=== PATIENT | male | born 1960 | race Caucasian/White ===

== ENCOUNTER → 2017-02-11 | Outpatient (CLI) | payer BC ==
[~2017-02-11] MED LIST: FENO160T PO; FLUO0.05 TOP; LDXCR30 TOP; LOSA100T2 PO; MULT-506 PO
[2017-02-11 11:22] LABS: BASO % 0.7 %; BASO ABS # 0.03 K/uL (0-0.2); COMPLETE YES; EOS % 2.6 %; IG% 0.2 %; LYMPH % 39.3 %; LYMPH ABS # 1.69 K/uL (1.2-3.4); MEAN CELL VOLUME 87.2 fL (80-100); MEAN CORPUSCULAR HEMOGLOBIN 30.9 pg (25-34); MEAN CORPUSCULAR HGB CONC 35.4 g/dl (32-36); MEAN PLATELET VOLUME 9.4 fL (7.4-10.4); MONO % 12.1 %; NEUT % 45.1 %; PLATELET COUNT 299 K/uL (130-400); RED BLOOD COUNT 4.47 M/uL (4.7-6.1)
[2017-02-11 11:32] LABS: URINE APPEARANCE CLEAR (CLEAR); URINE BILIRUBIN NEG (NEG); URINE COLOR DK YELLOW; URINE NITRITE NEG (NEG); URINE SPECIFIC GRAVITY 1.021 (1.000-1.030); UROBILINOGEN NEG (NEG)
[2017-02-11 11:34] LABS: MANUAL MICROSCOPIC REQUIRED? NO; REVIEW REQ? NO
[2017-02-11 11:36] LABS: ALT/SGPT 27 U/L (12-78); AST/SGOT 25 U/L (15-37); BLOOD UREA NITROGEN 17 mg/dl (7-18); BUN/CREATININE RATIO 12.3 (10-20); CARBON DIOXIDE 25 mmol/L (21-32); CHLORIDE 106 mmol/L (98-107); GLUCOSE 96 mg/dl (70-99); POTASSIUM 3.6 mmol/L (3.5-5.1); SODIUM 139 mmol/L (136-145)
[2017-02-11 11:39] LABS: CHOLESTEROL 205 mg/dl (0-200); CHOLESTEROL/HDL RATIO 4.4; HDL CHOLESTEROL 47 mg/dl; LDL CHOLESTEROL CALCULATED 138 mg/dl; TRIGLYCERIDES 101 mg/dl (0-150); VERY LOW DENSITY LIPOPROT CALC 20 mg/dl
[2017-02-11 11:41] LABS: CALCIUM 9.5 mg/dl (8.5-10.1)
== END | disposition home or self-care (01) ==
LOC: C.LABBC 08:24
PROVIDERS: ATTEND Internal Medicine
DX: Z00.00 Encounter for general adult medical examination without abnormal findings (principal); I10 Essential (primary) hypertension; E78.00 Pure hypercholesterolemia, unspecified; K21.9 Gastro-esophageal reflux disease without esophagitis

== ENCOUNTER 2017-05-10 23:28 | Emergency (ER) | payer BC ==
[~2017-05-10] VITALS: Ht 180.3 cm; Wt 84.9 kg
[~2017-05-10 23:28] MED LIST changes: -LDXCR30 TOP; -MULT-506 PO
[2017-05-10 23:29] VITALS: Ht 180.3 cm; Wt 84.9 kg
[2017-05-10] MEDS ORDERED: MULT-506 PO (23:44)
[2017-05-10] MEDS ORDERED: LDXCR30 TOP (23:44)
[2017-05-10] MEDS ORDERED: DOXYCYCLINE HYCLATE 100 MG CAP PO ONE (23:45)
--- NOTE | 2017-05-10 23:48 | EMERGENCY ROOM VISIT NOTE ---
ED Visit Note First contact with patient: 23:33 CHIEF COMPLAINT: Tick bite HISTORY OF PRESENT ILLNESS: This 57 yo patient presents to the emergency department after they noticed a tick embedded right calf. The patient did try to remove it and brought it in. It had been on for unknown time. The patient's tetanus shot is up-to-date. The patient denies any rashes, fevers, chills, or lightheadedness. The patient denies joint tenderness. REVIEW OF SYSTEMS: A 6 system review of systems was completed with positives and pertinent negatives listed in the HPI. ALLERGIES: wool, reviewed MEDICATIONS: Losartan, reviewed PMH: Hypertension, hyperlipidemia, reviewed SOCIAL HISTORY: No drug use PHYSICAL EXAM: Vital Signs: Reviewed Nurse's notes, vital signs stable. GENERAL : Pleasant male, in no acute distress, well-developed, well-nourished. SKIN: There is no tick embedded in the patient's right calf as he already removed and brought in for my review. There is a small zone of inflammation and eccymosis around the spot where the tick is. The skin is otherwise clear. NEUROLOGICAL: Alert and oriented to person place and time, cooperative. Sensory and motor functions grossly intact. ED COURSE: I examined the patient. The patient was counseled on tick bite and Lyme Disease and All Questions Are Answered. The patient was given doxycycline 200 mg p.o. for prophylaxis. The patient was discharged home in good condition. DIAGNOSIS: Tick bite and removal DISCHARGE INSTRUCTIONS & TREATMENT: Watch the area for signs of infection. Keep bacitracin on it for 2 days. Follow up with family doctor if he develops symptoms of a target rash, fever, chills, lightheadedness, or joint pain. Current/Historical Medications Scheduled Fenofibrate (Tricor), 160 MG PO DAILY Losartan Potassium & Hydrochlo (Hyzaar), 1 TAB PO DAILY Scheduled PRN Fluocinonide 0.05% (Lidex 0.05%), 0.05 TOP for Affected Skin Folds Allergies Coded Allergies: Latex1 -Allergic Contact Dermititis (Verified Allergy, Intermediate, RASH , 05/10/17) Uncoded Allergies: WOOL (Allergy, Mild, SENSATIVE TO SKIN-IRRITATION A CHILD, 05/10/17) Vital Signs Date Time Temp Pulse Resp B/P (MAP) Pulse Ox O2 Delivery O2 Flow Rate FiO2 05/10/17 23:29 36.7 85 20 137/91 97 Room Air Departure Information Referrals Norman Townsend M.D. (PCP) Patient Instructions [facility]
[2017-05-10 23:50] VITALS: BP 137/91; PULSE 85; TEMP 36.7; O2SAT 97
== END 2017-05-10 23:50 | disposition home or self-care (01) ==
LOC: C.EDB 23:28 → C.EDC 23:50
DX: S80.861A Insect bite (nonvenomous), right lower leg, initial encounter (principal); X58.XXXA Exposure to other specified factors, initial encounter; I10 Essential (primary) hypertension; E78.5 Hyperlipidemia, unspecified; Z79.899 Other long term (current) drug therapy; Z91.09 Other allergy status, other than to drugs and biological substances; Z91.040 Latex allergy status

== ENCOUNTER → 2017-08-19 | Outpatient (CLI) | payer BC ==
[~2017-08-19] MED LIST changes: -FLUO0.05 TOP; +LDXCR30 TOP; +MULT-506 PO
[2017-08-19 10:51] LABS: BASO % 0.6 %; BASO ABS # 0.03 K/uL (0-0.2); COMPLETE YES; EOS % 3.4 %; HEMATOCRIT 38.1 % (42-52); LYMPH % 38.9 %; LYMPH ABS # 1.92 K/uL (1.2-3.4); MEAN CELL VOLUME 87.2 fL (80-100); MEAN CORPUSCULAR HEMOGLOBIN 31.1 pg (25-34); MEAN CORPUSCULAR HGB CONC 35.7 g/dl (32-36); MEAN PLATELET VOLUME 9.1 fL (7.4-10.4); MONO % 12.4 %; NEUT % 44.7 %; PLATELET COUNT 316 K/uL (130-400); RED BLOOD COUNT 4.37 M/uL (4.7-6.1); WHITE BLOOD COUNT 4.93 K/uL (4.8-10.8)
[2017-08-19 11:18] LABS: ALT/SGPT 35 U/L (12-78); AST/SGOT 34 U/L (15-37); BLOOD UREA NITROGEN 16 mg/dl (7-18); BUN/CREATININE RATIO 12.4 (10-20); CALCIUM 9.4 mg/dl (8.5-10.1); CARBON DIOXIDE 28 mmol/L (21-32); CHLORIDE 102 mmol/L (98-107); CREATININE 1.32 mg/dl (0.60-1.40); GLUCOSE 91 mg/dl (70-99); POTASSIUM 3.3 mmol/L (3.5-5.1); SODIUM 135 mmol/L (136-145)
[2017-08-19 11:19] LABS: ESTIMATED AVERAGE GLUCOSE 114 mg/dl; HA1C FLAG Normal (Normal)
[2017-08-19 11:29] LABS: CHOLESTEROL 216 mg/dl (0-200); CHOLESTEROL/HDL RATIO 3.8; HDL CHOLESTEROL 57 mg/dl; LDL CHOLESTEROL CALCULATED 138 mg/dl; PROSTATE SPECIFIC ANTIGEN 0.723 ng/ml (0.000-4.000); TRIGLYCERIDES 104 mg/dl (0-150); VERY LOW DENSITY LIPOPROT CALC 21 mg/dl
--- NOTE | 2017-08-24 11:44 | CODING QUERY MEDICAL NECESSITY ---
SUPPORTING DIAGNOSIS NEEDED A supporting diagnosis is required for the test/procedure performed on this patient in order for us to be reimbursed by the patient's insurance. Please provide a supporting diagnosis for the following test/procedure listed below next to the test name along with your signature. *If there is no additional diagnosis for this patient that would support the following test/procedure please document that below next to the test/procedure. Test(s)/Procedure(s) that require a supporting diagnosis: * HEMOGLOBIN A1C DIAGNOSIS: * PSA DIAGNOSIS: Provider Signature: Date: Thank you Sania Goel [employer] Once completed, please kindly fax back to [phone] For questions please call [phone]
== END | disposition home or self-care (01) ==
LOC: C.LABBC 08:49
PROVIDERS: ATTEND Internal Medicine
DX: E78.00 Pure hypercholesterolemia, unspecified (principal); R73.9 Hyperglycemia, unspecified; N41.9 Inflammatory disease of prostate, unspecified

== ENCOUNTER → 2017-09-15 | Outpatient (CLI) | payer BC | END | disposition home or self-care (01) | LOC: C.RDSM 19:27 | PROVIDERS: ATTEND Physical Medicine & Rehabilitation Sports Medicine | DX: S92.415A Nondisplaced fracture of proximal phalanx of left great toe, initial encounter for closed fracture (principal); X58.XXXA Exposure to other specified factors, initial encounter ==

== ENCOUNTER → 2017-09-22 | Outpatient (CLI) | payer BC | END | disposition home or self-care (01) | LOC: C.RDSM 19:08 | PROVIDERS: ATTEND Physical Medicine & Rehabilitation Sports Medicine | DX: S92.415A Nondisplaced fracture of proximal phalanx of left great toe, initial encounter for closed fracture (principal); X58.XXXA Exposure to other specified factors, initial encounter ==

== ENCOUNTER → 2017-10-18 | Outpatient (CLI) | payer BC | END | disposition home or self-care (01) | LOC: C.RDSM 07:00 | PROVIDERS: ATTEND Physical Medicine & Rehabilitation Sports Medicine | DX: S92.415D Nondisplaced fracture of proximal phalanx of left great toe, subsequent encounter for fracture with routine healing (principal); X58.XXXD Exposure to other specified factors, subsequent encounter ==

== ENCOUNTER → 2017-11-29 | Outpatient (CLI) | payer BC | END | disposition home or self-care (01) | LOC: C.RDSM 15:19 | PROVIDERS: ATTEND Physical Medicine & Rehabilitation Sports Medicine | DX: S92.415D Nondisplaced fracture of proximal phalanx of left great toe, subsequent encounter for fracture with routine healing (principal); X58.XXXD Exposure to other specified factors, subsequent encounter ==

== ENCOUNTER 2022-05-25 20:20 | Inpatient (IN) ==
[2022-05-25 22:15] LABS: Basophils # (auto) 0.04 K/uL (0-0.2); Basophils % (auto) 0.5 %; Eosinophils # (auto) 0.17 K/uL (0-0.50); Eosinophils % (auto) 2.1 %; Hematocrit (blood only) 41.4 % (40.1-51.0); Hemoglobin 15.6 g/dl (14.0-18.0); Immature Granulocytes # (auto) 0.02 K/uL (0.00-0.02); Immature Granulocytes % (auto) 0.2 %; Lymphocytes % (auto) 12.1 %; Mean Corpuscular Hemoglobin 30.7 pg (25.0-34.0); Mean Corpuscular Hgb Conc 37.7 g/dL (32.0-36.0); Mean Corpuscular Volume 81.5 fL (80.0-100.0); Monocytes # (auto) 1.23 K/uL (0.24-0.82); Monocytes % (auto) 14.9 %; Neutrophils # (auto) 5.78 K/uL (1.4-6.5); Neutrophils % (auto) 70.2 %; Platelet Count 278 K/uL (130-400); RDW Coefficient of Variation 12.4 % (11.5-14.5); RDW Standard Deviation 36.5 fL (36.4-46.3); Red Blood Count 5.08 M/uL (4.63-6.08); White Blood Count 8.24 K/ul (4.8-10.8)
[2022-05-25 22:34] LABS: Appearance Urine Clear (Clear); Bilirubin Urine Negative (Negative); Blood Urine Negative (Negative); Color Urine Yellow; Glucose Urine UA Negative (Negative); Ketones Urine Negative (Negative); Leukocyte Esterase Urine Negative (Negative); Nitrite Urine Negative (Negative); Protein Urine Negative (Negative); Specific Gravity Urine 1.016 (1.000-1.030); Urobilinogen Urine Negative (Negative)
[2022-05-25 22:55] LABS: Albumin Globulin Ratio 1.9 (0.9-2); Albumin Level 4.8 gm/dl (3.4-5.0); Calcium 9.2 mg/dl (8.5-10.1); Creatinine Clr Calc Pharmacy 81.6 ml/min; Est GFR (African American) 93.1 ml/min; Est GFR (Non-African American) 80.3 ml/min; Globulin 2.5 gm/dl (2.5-4.0); Potassium 3.4 mmol/L (3.5-5.1); Total Protein 7.3 gm/dl (6.0-8.3)
[2022-05-25] MEDS ORDERED: ACETAMINOPHEN 1,000 MG/100 ML VIAL IV STA (23:39)
--- NOTE | 2022-05-25 23:39 | Emergency Department Note ---
History of Present Illness General Chief complaint: Headache Stated complaint: HEADACHE, VOMITING Time Seen by Provider: 05/25/22 23:22 Source: patient Mode of arrival: ambulatory Limitations: no limitations History of Present Illness Provider complaint: headache Onset (ago): day(s) 4 Location: head Maximum Pain Intensity: 5 This is a 62-year-old male who presents due to concern for persistent mild headaches and dizziness since last evening. Patient states he does have a history of migraines as well as cluster headaches, and states these been going on for many years. He has previously had headaches that have lasted several days on end. He states this episode began evening, dull and mild, and was better with Excedrin. He states it did persist over the weekend and seem to be moving around to different areas of his head. Patient states he has previously undergone imaging of his head including CAT scan as well as MRI. He states Wednesday evening he did have a few brief episodes of nausea and vomiting however felt better the rest of the weekend and had no recurrence. Patient states he recently had cellulitis on one of his left toes. He states he took a week of Keflex and did not feel it was improved so on he saw his family doctor again and was started on Bactrim. 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 He states he did take a home COVID test as a precaution and it was negative. Home Medications Medication Instructions Recorded Confirmed Type ascorbic acid (vitamin C) 1,000 mg 1 gm PO DAILY 11/25/18 05/21/22 History tablet ktdomsfg-[id number] acid 300 1 tab PO DAILY 11/25/18 05/21/22 History mcg-lycopene 600 mcg-lutein 300 mcg tablet (Centrum Silver Ultra Men's) fluocinonide 0.05 % topical cream 1 appln topical BID PRN rash 07/11/19 05/21/22 History garlic 1,000 mg capsule 1,000 mg PO BID 07/11/19 05/21/22 History cholecalciferol (vitamin D3) 25 25 mcg PO DAILY 01/14/21 05/21/22 History mcg (1,000 unit) capsule flaxseed oil 1,000 mg capsule 1,400 mg PO BIDM 02/20/21 05/21/22 History ([place]-3 Flaxseed Oil) rosuvastatin 10 mg tablet 10 mg PO DAILY #90 tabs 09/12/21 05/21/22 Rx vdmbcjl-[id number]-[id number] 250 1 tab PO Q6H PRN 03/13/22 05/21/22 History mg-250 mg-65 mg tablet (Excedrin Extra Strength) omeprazole magnesium 20 mg 10 mg PO DAILY 03/13/22 05/21/22 History tablet,delayed release (Prilosec OTC) tumeric 100 mg-jeffrey 150 mg-olive cap PO 03/13/22 05/21/22 History 50 mg-oreg 150 mg-caprylate capsule zinc 50 mg tablet 50 mg PO DAILY 03/13/22 05/21/22 History losartan 100 mg tablet 100 mg PO DAILY #30 tabs 05/26/22 Rx Allergies Allergy/AdvReac Type Severity Reaction Status Date / Time latex Allergy Intermediate RASH Verified 05/13/22 14:41 wool Allergy Mild Unknown Verified 05/26/22 02:12 Past Med/Surg History Medical History Dyslipidemia GERD (gastroesophageal reflux disease) HTN (hypertension), benign 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 Prediabetes Vertigo Surgical History S/P bunionectomy Family History Father Hypertension Denies family history of Ovarian cancer Prostate cancer Kidney disease Breast cancer Colorectal cancer Social History Smoking Status: Never smoker Second Hand Exposure: No; Hx Alcohol Use: No Hx Substance Use: No Preferred Language: Pashto Communication Ability: Effective Visual Impairment: No Limitations Hearing Ability: Normal [employer] Required: No Beliefs That Will Affect Care: None marital status: Single Current Living Situation: Alone current occupational status: employed 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 [employer] Feels Safe at Home: No Dental Care, Regularly: Yes Seatbelt Use: always Sunscreen Use: No Assistive Devices: None Review of Systems A total of 10 systems reviewed and were otherwise negative All systems reviewed & are unremarkable except as noted in HPI & below Physical Exam Vital Signs Vital Signs - 24 hr 05/25/22 20:31 05/25/22 22:17 05/26/22 00:08 Temperature 36.4 C L Temperature Source Temporal Artery Scan Pulse Rate 110 H Pulse Rate [Apical] 95 H 83 Respiratory Rate 20 17 19 Respiratory Effort / Characteristics Non-Labored Spontaneous Non-Labored Spontaneous Respiratory Depth Normal Normal Normal Respiratory Pattern Regular Regular Blood Pressure 140/87 Blood Pressure [Right Arm] 131/96 119/84 Blood Pressure Mean 104 Blood Pressure Mean [Right Arm] 107 95 Pulse Oximetry 95 97 98 Oxygen Delivery Method Room Air Room Air Sepsis Recent Fever Within 48 Hours No Sepsis New/Unexplained Change in Mental Status N/A Sepsis Action Taken by Nursing No Action Required GENERAL: alert, well appearing, well nourished, no distress, non-toxic EYE EXAM: normal conjunctiva, PERRL and EOM's grossly intact, no nystagmus OROPHARYNX: no exudate, no erythema, lips, buccal mucosa, and tongue normal and mucous membranes are moist NECK: supple, no nuchal rigidity, no adenopathy, non-tender LUNGS: Clear to auscultation. Normal chest wall mechanics, no w/r/r HEART: no murmurs, S1 normal and S2 normal ABDOMEN: abdomen soft, non-tender, normo-active bowel sounds, no masses, no rebound or guarding. BACK: Back is symmetrical on inspection and there is no deformity, no midline tenderness, no CVA tenderness. SKIN: no rashes and no bruising UPPER EXTREMITIES: upper extremities are grossly normal. FROM, nml pulses b/l. LOWER EXTREMITIES: No pitting edema. FROM, nml pulses b/l. No evidence of persistent cellulitis or worsening infection of the involved toe on the left foot. No bony tenderness with palpation, no evidence of edema or ascending lymphangitis. NEURO EXAM: Normal sensorium, cranial nerves II-XII grossly intact, normal speech, no gross weakness of arms, no gross weakness of legs. Gross sensation intact. Course Administered Medications Discontinued Medications Famotidine (Famotidine 40 Mg Tablet) 40 mg PO QAM KINA Stop: 06/25/22 08:59 Last Admin: 05/26/22 09:24 Dose: 40 mg Documented By: RANDY Sodium Chloride (Nss 1000ml) 1,000 mls @ 100 mls/hr IV .Q10H KIAN Stop: 06/24/22 23:44 Last Infusion: 05/26/22 02:15 Dose: 0 mls/hr Documented By: Admin: 05/25/22 23:49 Dose: 100 mls/hr Documented By: AMINATA Acetaminophen (Ofirmev) 1,000 mg in 100 mls @ 400 mls/hr IV NOW STA Stop: 05/25/22 23:53 Last Infusion: 05/26/22 03:53 Dose: 0 mls/hr Documented By: Admin: 05/25/22 23:47 Dose: 400 mls/hr Documented By: AMINATA Magnesium Sulfate/Dextrose (Magnesium Sulfate / D5w) 1 gm in 100 mls @ 100 mls/hr IV Q1H KINA Stop: 05/26/22 03:22 Last Infusion: 05/26/22 05:30 Dose: 0 mls/hr Documented By: Admin: 05/26/22 04:20 Dose: 100 mls/hr Documented By: Infusion: 05/26/22 04:12 Dose: 100 mls/hr Documented By: Admin: 05/26/22 03:12 Dose: 100 mls/hr Documented By: PILAR Influenza Virus Vaccine Quadrival (Fluarix Quadrivalent 0.5 Ml Syr) 0.5 ml IM .ONCE ONE Stop: 05/26/22 04:26 Last Admin: 05/26/22 09:21 Dose: 0.5 ml Documented By: RANDY Losartan Potassium (Losartan Potassium 50 Mg Tab) 100 mg PO QAM KINA Stop: 06/25/22 08:59 Last Admin: 05/26/22 09:24 Dose: 100 mg Documented By: RANDY Potassium Chloride (Potassium Chloride Crtab 20 Meq Tabcr) 20 meq PO NOW STA Stop: 05/26/22 02:06 Last Admin: 05/26/22 03:29 Dose: 20 meq Documented By: PILAR Rosuvastatin Calcium (Rosuvastatin Calcium 10 Mg Tab) 10 mg PO DAILY KINA Stop: 06/25/22 08:59 Last Admin: 05/26/22 09:24 Dose: 10 mg Documented By: RANDY Medical Decision Making Differential Diagnosis Differential Diagnosis includes but is not limited to headache, tension headache, cluster headache, migraine, subarachnoid hemorrhage, meningitis, mass, central venous thrombus, concussion, trauma and epidural/subdural hemorrhage. Medical Records Attestation: I reviewed the patient's medical records. Home Medications Current Medication List: was personally reviewed by me Laboratory Data Attestation: I reviewed the patient's lab results. Result diagrams: 05/26/22 10:30 05/26/22 10:30 Lab Results 05/25/22 05/25/22 05/25/22 Range/Units 21:51 21:51 21:51 WBC 8.24 (4.8-10.8) K/ul RBC 5.08 (4.63-6.08) M/uL Hgb 15.6 (14.0-18.0) g/dl Hct 41.4 (40.1-51.0) % MCV 81.5 (80.0-100.0) fL MCH 30.7 (25.0-34.0) pg MCHC 37.7 H (32.0-36.0) g/dL RDW Std Deviation 36.5 (36.4-46.3) fL RDW Coeff of Luly 12.4 (11.5-14.5) % Plt Count 278 (130-400) K/uL MPV 9.0 L (9.4-12.4) fL Immature Gran % (Auto) 0.2 % Neut % (Auto) 70.2 % Lymph % (Auto) 12.1 % [place] % (Auto) 14.9 % Eos % (Auto) 2.1 % Baso % (Auto) 0.5 % Neut # (Auto) 5.78 (1.4-6.5) K/uL Lymph # (Auto) 1.00 L (1.2-3.4) K/uL [place] # (Auto) 1.23 H (0.24-0.82) K/uL Eos # (Auto) 0.17 (0-0.50) K/uL Baso # (Auto) 0.04 (0-0.2) K/uL Immature Gran # (Auto) 0.02 (0.00-0.02) K/uL Sodium 124 L (136-145) mmol/L Potassium 3.4 L (3.5-5.1) mmol/L Chloride 92 L (98-107) mmol/L Carbon Dioxide 20 L (21-32) mmol/L Anion Gap 12 H (3-11) BUN 13 (6-23) mg/dl Creatinine 1.00 (0.6-1.4) mg/dl Est Cr Clr Drug Dosing 81.6 ml/min Est GFR ( Amer) 93.1 ml/min Est GFR (Non-Af Amer) 80.3 ml/min BUN/Creatinine Ratio 13.0 (10-20) Glucose 113 H (70-99(Fasting)) mg/dl Osmolality (280-300) mOsm/kg Calcium 9.2 (8.5-10.1) mg/dl Phosphorus 3.9 (2.5-4.9) mg/dl Magnesium 1.4 L (1.7-2.4) mg/dl Total Bilirubin 1.0 (0.2-1.0) mg/dl AST 42 H (13-39) U/L ALT 42 (7-52) U/L Alkaline Phosphatase 99 (34-104) U/L Total Protein 7.3 (6.0-8.3) gm/dl Albumin 4.8 (3.4-5.0) gm/dl Globulin 2.5 (2.5-4.0) gm/dl Albumin/Globulin Ratio 1.9 (0.9-2) TSH (0.300-4.500) uIu/ml Urine Color Urine Appearance (Clear) Urine pH (4.5-7.5) Ur Specific [place] (1.000-1.030) Urine Protein (Negative) Urine Glucose (UA) (Negative) Urine Ketones (Negative) Urine Blood (Negative) Urine Nitrite (Negative) Urine Bilirubin (Negative) Urine Urobilinogen (Negative) Ur Leukocyte Esterase (Negative) Ur Random Sodium mmol/L SARS-CoV-2, RNA, NAAT (NEGATIVE) 05/25/22 05/25/22 05/25/22 Range/Units 21:51 21:51 22:11 WBC (4.8-10.8) K/ul RBC (4.63-6.08) M/uL Hgb (14.0-18.0) g/dl Hct (40.1-51.0) % MCV (80.0-100.0) fL MCH (25.0-34.0) pg MCHC (32.0-36.0) g/dL RDW Std Deviation (36.4-46.3) fL RDW Coeff of Luly (11.5-14.5) % Plt Count (130-400) K/uL MPV (9.4-12.4) fL Immature Gran % (Auto) % Neut % (Auto) % Lymph % (Auto) % [place] % (Auto) % Eos % (Auto) % Baso % (Auto) % Neut # (Auto) (1.4-6.5) K/uL Lymph # (Auto) (1.2-3.4) K/uL [place] # (Auto) (0.24-0.82) K/uL Eos # (Auto) (0-0.50) K/uL Baso # (Auto) (0-0.2) K/uL Immature Gran # (Auto) (0.00-0.02) K/uL Sodium (136-145) mmol/L Potassium (3.5-5.1) mmol/L Chloride (98-107) mmol/L Carbon Dioxide (21-32) mmol/L Anion Gap (3-11) BUN (6-23) mg/dl Creatinine (0.6-1.4) mg/dl Est Cr Clr Drug Dosing ml/min Est GFR ( Amer) ml/min Est GFR (Non-Af Amer) ml/min BUN/Creatinine Ratio (10-20) Glucose (70-99(Fasting)) mg/dl Osmolality 259 L (280-300) mOsm/kg Calcium (8.5-10.1) mg/dl Phosphorus (2.5-4.9) mg/dl Magnesium (1.7-2.4) mg/dl Total Bilirubin (0.2-1.0) mg/dl AST (13-39) U/L ALT (7-52) U/L Alkaline Phosphatase (34-104) U/L Total Protein (6.0-8.3) gm/dl Albumin (3.4-5.0) gm/dl Globulin (2.5-4.0) gm/dl Albumin/Globulin Ratio (0.9-2) TSH 2.826 (0.300-4.500) uIu/ml Urine Color Yellow Urine Appearance Clear (Clear) Urine pH 6.0 (4.5-7.5) Ur Specific [place] 1.016 (1.000-1.030) Urine Protein Negative (Negative) Urine Glucose (UA) Negative (Negative) Urine Ketones Negative (Negative) Urine Blood Negative (Negative) Urine Nitrite Negative (Negative) Urine Bilirubin Negative (Negative) Urine Urobilinogen Negative (Negative) Ur Leukocyte Esterase Negative (Negative) Ur Random Sodium mmol/L SARS-CoV-2, RNA, NAAT (NEGATIVE) 05/26/22 05/26/22 Range/Units 00:01 00:25 WBC (4.8-10.8) K/ul RBC (4.63-6.08) M/uL Hgb (14.0-18.0) g/dl Hct (40.1-51.0) % MCV (80.0-100.0) fL MCH (25.0-34.0) pg MCHC (32.0-36.0) g/dL RDW Std Deviation (36.4-46.3) fL RDW Coeff of Luly (11.5-14.5) % Plt Count (130-400) K/uL MPV (9.4-12.4) fL Immature Gran % (Auto) % Neut % (Auto) % Lymph % (Auto) % [place] % (Auto) % Eos % (Auto) % Baso % (Auto) % Neut # (Auto) (1.4-6.5) K/uL Lymph # (Auto) (1.2-3.4) K/uL [place] # (Auto) (0.24-0.82) K/uL Eos # (Auto) (0-0.50) K/uL Baso # (Auto) (0-0.2) K/uL Immature Gran # (Auto) (0.00-0.02) K/uL Sodium (136-145) mmol/L Potassium (3.5-5.1) mmol/L Chloride (98-107) mmol/L Carbon Dioxide (21-32) mmol/L Anion Gap (3-11) BUN (6-23) mg/dl Creatinine (0.6-1.4) mg/dl Est Cr Clr Drug Dosing ml/min Est GFR ( Amer) ml/min Est GFR (Non-Af Amer) ml/min BUN/Creatinine Ratio (10-20) Glucose (70-99(Fasting)) mg/dl Osmolality (280-300) mOsm/kg Calcium (8.5-10.1) mg/dl Phosphorus (2.5-4.9) mg/dl Magnesium (1.7-2.4) mg/dl Total Bilirubin (0.2-1.0) mg/dl AST (13-39) U/L ALT (7-52) U/L Alkaline Phosphatase (34-104) U/L Total Protein (6.0-8.3) gm/dl Albumin (3.4-5.0) gm/dl Globulin (2.5-4.0) gm/dl Albumin/Globulin Ratio (0.9-2) TSH (0.300-4.500) uIu/ml Urine Color Urine Appearance (Clear) Urine pH (4.5-7.5) Ur Specific [place] (1.000-1.030) Urine Protein (Negative) Urine Glucose (UA) (Negative) Urine Ketones (Negative) Urine Blood (Negative) Urine Nitrite (Negative) Urine Bilirubin (Negative) Urine Urobilinogen (Negative) Ur Leukocyte Esterase (Negative) Ur Random Sodium 38 mmol/L SARS-CoV-2, RNA, NAAT NEGATIVE (NEGATIVE) MDM Narrative An order was placed for continuous cardiac monitoring. The monitor shows a rate of _80_ with _normal sinus__ rhythm. This is a 62-year-old male who presents due to concern for persistent headache and dizziness both of which she has had previously and had prior evaluation. Patient recently on antibiotics for cellulitis of the toe as diagnosed by his outpatient provider. Patient started on Bactrim, his second course of antibiotics on when he began having headaches and dizziness again evening. Labs been drawn and sent prior to my evaluation as patient presented on day of high volume and acuity. Patient hemodynamically stable and afebrile. Patient found to have significant hyponatremia which she has not previously had. No prior history of renal or adrenal problems. No other recent medication changes. I suspect patient's hyponatremia which could be contributing to the persistent dizziness and headaches is likely an adverse reaction to his Bactrim. I do not see any evidence of worsening infection on inspection of the left foot and involved toe. Case discussed with hospitalist for additional evaluation and management. I did discuss all results with the patient at bedside, he verbalized understanding and was in agreement with plan. At this time I do not suspect other occult [employer] etiology for his headaches or dizziness as patient states they are similar to prior and he has a normal and nonfocal neuro exam. Impression & Plan Headache, Hyponatremia, Dizziness Discharge Plan Visit Data Chief Complaint: Headache Stated Complaint: HEADACHE, VOMITING ED Provider: Hyun Zeng Discharge Problem: Headache, Hyponatremia, Dizziness Patient Disposition: Admitted As Inpatient Discharge Instructions Interventions: ED Discharge Assessment Last Done: 05/26/22 01:41
[2022-05-25] MEDS ORDERED: SODIUM CHLORIDE 0.9% 1000ML 1,000 ML IV SCH (23:45)
[2022-05-26 00:01] LABS: Magnesium 1.4 mg/dl (1.7-2.4); Phosphorus 3.9 mg/dl (2.5-4.9)
--- NOTE | 2022-05-26 01:07 | History & Physical Report ---
Date of Service May 26, 2022 Assessment & Plan (1) Head ache: Plan: Patient with longstanding history of headache. Reports that this headache is slightly different than his prior. He does not feel that it is more severe. No neurological deficits. He does report some visual disturbance prior to the headache startingquestion of possible aura. Reports that his pain is improved at this point. Not requesting anything for headache at this time. Tylenol as needed Zofran as needed (2) Hyponatremia: Plan: Sodium = 124. Patient is on hydrochlorothiazide for blood pressure management. Hyponatremia no acute symptoms Check urine and serum osmolality Check urine Sodium Hold HCTZ Repeat chemistry in a.m. (3) HTN (hypertension), benign: Plan: Chronic. Hold HCTZ We will give losartan 100 mg daily Continue to monitor (4) GERD (gastroesophageal reflux disease): Plan: Chronic. Stable. Pepcid 40 mg p.o. every morning while inpatient (5) Dyslipidemia: Plan: Chronic. Stable. Continue Crestor 10 mg p.o. daily History of Present Illness Chief Complaint: Headache Primary Care Provider: Ami Hernandez MD Justin Lang Is a 62-year-old male presenting with complaint of persistent headache ongoing for the last 5 days. He reports prior history of migraine or possible cluster headaches.Most recent episode began 5 days ago. He noted some mild visual disturbance prior to the headache which he describes as "missing pieces" and what he was seeing. Patient has been on Bactrim for cellulitis of the left foot. He has had some nausea as well as feeling "woozy" but no additional complaints. Specifically denies fevers, chills, chest pain, cough, shortness of breath, nausea, vomiting, diarrhea, constipation In the ER he was found to be hyponatremic with sodium = 124, K = 3.4, magnesium = 1.4 Allergies Allergy/AdvReac Type Severity Reaction Status Date / Time latex Allergy Intermediate RASH Verified 05/13/22 14:41 wool Allergy Mild Unknown Verified 05/26/22 02:12 Home Medications Medication Instructions Recorded Confirmed Type ascorbic acid (vitamin C) 1,000 mg 1 gm PO DAILY 11/25/18 05/21/22 History tablet gobiaioe-ixe-qacfl acid 300 1 tab PO DAILY 11/25/18 05/21/22 History mcg-lycopene 600 mcg-lutein 300 mcg tablet (Centrum Silver Ultra Men's) fluocinonide 0.05 % topical cream 1 appln topical BID PRN rash 07/11/19 05/21/22 History garlic 1,000 mg capsule 1,000 mg PO BID 07/11/19 05/21/22 History cholecalciferol (vitamin D3) 25 25 mcg PO DAILY 01/14/21 05/21/22 History mcg (1,000 unit) capsule flaxseed oil 1,000 mg capsule 1,400 mg PO BIDM 02/20/21 05/21/22 History ([place]-3 Flaxseed Oil) rosuvastatin 10 mg tablet 10 mg PO DAILY #90 tabs 09/12/21 05/21/22 Rx phtabsi-uzlorvvxbjvdh-daaaidmq 250 1 tab PO Q6H PRN 03/13/22 05/21/22 History mg-250 mg-65 mg tablet (Excedrin Extra Strength) loratadine 10 mg tablet (Claritin) 10 mg PO DAILY PRN 03/13/22 05/21/22 History losartan 100 1 tab PO DAILY #90 tabs 03/13/22 05/21/22 Rx mg-hydrochlorothiazide 25 mg tablet omeprazole magnesium 20 mg 10 mg PO DAILY 03/13/22 05/21/22 History tablet,delayed release (Prilosec OTC) tumeric 100 mg-jeffrey 150 mg-olive cap PO 03/13/22 05/21/22 History 50 mg-oreg 150 mg-caprylate capsule zinc 50 mg tablet 50 mg PO DAILY 03/13/22 05/21/22 History sulfamethoxazole 800 1 tab PO BID 7 days #14 tabs 05/21/22 05/21/22 Rx mg-trimethoprim 160 mg tablet Past Med/Surg History Medical History Dyslipidemia GERD (gastroesophageal reflux disease) HTN (hypertension), benign 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 Prediabetes Vertigo Surgical History S/P bunionectomy Family History Father Hypertension Denies family history of Ovarian cancer Prostate cancer Kidney disease Breast cancer Colorectal cancer Social History Smoking Status: Never smoker Second Hand Exposure: No; Do You Dip or Chew Tobacco: No; Tobacco Cessation Education Requested by Patient: No Hx Alcohol Use: No Hx Substance Use: No Preferred Language: Maltese Communication Ability: Effective Visual Impairment: No Limitations Hearing Ability: Normal Map And Chart Mounter Required: No Beliefs That Will Affect Care: None marital status: Single Current Living Situation: Alone current occupational status: employed 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 [employer] Other Information That Helps Us Care for You: No Feels Safe at Home: Yes Dental Care, Regularly: Yes Seatbelt Use: always Sunscreen Use: No Assistive Devices: Glasses Review of Systems Review of Systems: All systems reviewed & are unremarkable except as noted in HPI & below Physical Exam Physical Exam: General: patient resting comfortably, NAD, non-toxic in appearance, AA&O x 4 Skin: warm, dry, intact, no rashes or lesions HEENT: NC/AT, PERRL, EOMI, anicteric sclera, conjunctiva without injection, external ear normal to inspection and nontender, nares patent, moist mucus membranes, dentition intact, no oropharyngeal lesions, neck supple, trachea midline, no LAD, no thyromegaly, no JVD Heart: +S1/S2, regular, no m/r/g Lungs: equal air entry bilaterally, no rales/rhonchi/wheezes Abd: +BS, soft, NT/ND, no masses/organomegaly/ascites Ext: warm, 2+ pulses in UE/LE bilaterally, no clubbing/cyanosis or edema Neuro: nonfocal, patient AA&O x 4, speech intact, no facial droop, moving all extremities on command with equal strength 5/5 Results & Data Results & Data ([facility]) Vital Signs (Past 12 Hours) Vital Signs Temp Pulse Pulse Resp BP BP Pulse Ox 05/26/22 00:08 83 19 119/84 98 05/25/22 22:17 95 H 17 131/96 97 05/25/22 20:31 36.4 C L 110 H 20 140/87 95 O2 Del Method 05/26/22 00:08 Room Air 05/25/22 22:17 05/25/22 20:31 Room Air Laboratory Results Laboratory Results WBC 8.24 K/ul (4.8-10.8) 05/25/22 21:51 RBC 5.08 M/uL (4.63-6.08) 05/25/22 21:51 Hgb 15.6 g/dl (14.0-18.0) 05/25/22 21:51 Hct 41.4 % (40.1-51.0) 05/25/22 21:51 MCV 81.5 fL (80.0-100.0) 05/25/22 21:51 MCH 30.7 pg (25.0-34.0) 05/25/22 21:51 MCHC 37.7 g/dL (32.0-36.0) H 05/25/22 21:51 RDW Std Deviation 36.5 fL (36.4-46.3) 05/25/22 21:51 RDW Coeff of Luly 12.4 % (11.5-14.5) 05/25/22 21:51 Plt Count 278 K/uL (130-400) 05/25/22 21:51 MPV 9.0 fL (9.4-12.4) L 05/25/22 21:51 Immature Gran % (Auto) 0.2 % 05/25/22 21:51 Neut % (Auto) 70.2 % 05/25/22 21:51 Lymph % (Auto) 12.1 % 05/25/22 21:51 [place] % (Auto) 14.9 % 05/25/22 21:51 Eos % (Auto) 2.1 % 05/25/22 21:51 Baso % (Auto) 0.5 % 05/25/22 21:51 Neut # (Auto) 5.78 K/uL (1.4-6.5) 05/25/22 21:51 Lymph # (Auto) 1.00 K/uL (1.2-3.4) L 05/25/22 21:51 [place] # (Auto) 1.23 K/uL (0.24-0.82) H 05/25/22 21:51 Eos # (Auto) 0.17 K/uL (0-0.50) 05/25/22 21:51 Baso # (Auto) 0.04 K/uL (0-0.2) 05/25/22 21:51 Immature Gran # (Auto) 0.02 K/uL (0.00-0.02) 05/25/22 21:51 Sodium 124 mmol/L (136-145) L 05/25/22 21:51 Potassium 3.4 mmol/L (3.5-5.1) L 05/25/22 21:51 Chloride 92 mmol/L (98-107) L 05/25/22 21:51 Carbon Dioxide 20 mmol/L (21-32) L 05/25/22 21:51 Anion Gap 12 (3-11) H 05/25/22 21:51 BUN 13 mg/dl (6-23) 05/25/22 21:51 Creatinine 1.00 mg/dl (0.6-1.4) 05/25/22 21:51 Est Cr Clr Drug Dosing 81.6 ml/min 05/25/22 21:51 Est GFR ( Amer) 93.1 ml/min 05/25/22 21:51 Est GFR (Non-Af Amer) 80.3 ml/min 05/25/22 21:51 BUN/Creatinine Ratio 13.0 (10-20) 05/25/22 21:51 Glucose 113 mg/dl (70-99(Fasting)) H 05/25/22 21:51 Osmolality 259 mOsm/kg (280-300) L 05/25/22 21:51 Calcium 9.2 mg/dl (8.5-10.1) 05/25/22 21:51 Phosphorus 3.9 mg/dl (2.5-4.9) 05/25/22 21:51 Magnesium 1.4 mg/dl (1.7-2.4) L 05/25/22 21:51 Total Bilirubin 1.0 mg/dl (0.2-1.0) 05/25/22 21:51 AST 42 U/L (13-39) H 05/25/22 21:51 ALT 42 U/L (7-52) 05/25/22 21:51 Alkaline Phosphatase 99 U/L (34-104) 05/25/22 21:51 Total Protein 7.3 gm/dl (6.0-8.3) 05/25/22 21:51 Albumin 4.8 gm/dl (3.4-5.0) 05/25/22 21:51 Globulin 2.5 gm/dl (2.5-4.0) 05/25/22 21:51 Albumin/Globulin Ratio 1.9 (0.9-2) 05/25/22 21:51 TSH 2.826 uIu/ml (0.300-4.500) 05/25/22 21:51 Urine Color Yellow 05/25/22 22:11 Urine Appearance Clear (Clear) 05/25/22 22:11 Urine pH 6.0 (4.5-7.5) 05/25/22 22:11 Ur Specific [place] 1.016 (1.000-1.030) 05/25/22 22:11 Urine Protein Negative (Negative) 05/25/22 22:11 Urine Glucose (UA) Negative (Negative) 05/25/22 22:11 Urine Ketones Negative (Negative) 05/25/22 22:11 Urine Blood Negative (Negative) 05/25/22 22:11 Urine Nitrite Negative (Negative) 05/25/22 22:11 Urine Bilirubin Negative (Negative) 05/25/22 22:11 Urine Urobilinogen Negative (Negative) 05/25/22 22:11 Ur Leukocyte Esterase Negative (Negative) 05/25/22 22:11 Ur Random Sodium 38 mmol/L 05/26/22 00:25 SARS-CoV-2, RNA, NAAT NEGATIVE (NEGATIVE) 05/26/22 00:[address] head: Per stat rad No intracranial hemorrhage, mass-effect or midline shift. There is no abnormal extra-axial fluid collection. No evidence of acute infarct. The visualized paranasal sinuses and mastoid air cells are clear. No fracture. PG Care Time/CCT Total # of Minutes Spent Total Time Spent with Patient: Total time spent is greater than 50% in coordination of care (as documented) at patient's floor/unit and/or counseling patient: Coding Level of Care Code 70381 Initial Inpt Care Lvl 2 Diagnoses Head ache R51.9 Hyponatremia E87.1 HTN (hypertension), benign I10 GERD (gastroesophageal reflux disease) K21.9 Dyslipidemia E78.5
[2022-05-26] MEDS ORDERED: POTASSIUM CHLORIDE CRTAB 20 MEQ TABCR PO STA (02:05)
[2022-05-26] MEDS ORDERED: ACETAMINOPHEN 325 MG TAB PO PRN (02:05)
[2022-05-26] MEDS ORDERED: ONDANSETRON INJ 2 MG/ML 2 ML VIAL IV PRN (02:05)
[2022-05-26] MEDS ORDERED: MAGNESIUM SULFATE / D5W 1 GM/100 ML BAG IV SCH (02:30)
[2022-05-26] MEDS: MAGNESIUM SULFATE / D5W 1 GM/100 ML BAG IV SCH ×2 (03:12→04:20)
[2022-05-26] MEDS ORDERED: FLUARIX QUADRIVALENT 0.5 ML SYR IM ONE (04:25)
--- NOTE | 2022-05-26 07:26 | CT Scan Report ---
HEAD CT NONCONTRAST CT DOSE: 691.05 mGy.cm HISTORY: headache, hyponatremia TECHNIQUE: Multiaxial CT images of the head were performed without the use of intravenous contrast. A utomated exposure control was utilized for this study. A dose lowering technique was utilized adheri ng to the principles of ALARA. Comparison: Head CT 01/28/2021. Findings: The paranasal sinuses and mastoid air cells are clear. The calvarium and skull base are int act. The ventricles and sulci are within normal limits. There is no mass, hematoma, midline shift, or acute infarct. Impression: No acute intracranial abnormality. ACT 112: Negative or not required by law. Electronically signed by: Vincent Borja M.D. 05/26/2022 7:23 AM
--- NOTE | 2022-05-26 08:19 | Hospitalist Progress Note ---
Date of Service May 26, 2022 Assessment & Plan (1) Head ache: Plan: Patient with longstanding history of headaches. Reports that this headache is slightly different than his prior. He does not feel that it is more severe. No neurological deficits. He does report some visual disturbance prior to the headache startingquestion of possible aura. Patient notes that his headache has much improved. Upon clarification of previous note his visual symptoms did not start prior to the onset of headache. His headache had already started thus this is not an aura. Reports that his pain is improved at this point. Not requesting anything for headache at this time. Tylenol as needed Zofran as needed (2) Hyponatremia: Plan: Sodium = 124. Patient is on hydrochlorothiazide for blood pressure management. Hyponatremia no acute symptoms Check urine and serum osmolality Check urine Sodium Hold HCTZ AM BMP (3) HTN (hypertension), benign: Plan: Chronic. Hold HCTZ We will give losartan 100 mg daily Continue to monitor (4) GERD (gastroesophageal reflux disease): Plan: Chronic. Stable. Pepcid 40 mg p.o. every morning while inpatient (5) Dyslipidemia: Plan: Chronic. Stable. Continue Crestor 10 mg p.o. daily Admission and Anticipated Discharge Date Admission Date: May 26, 2022 Subjective Patient notes that his headache has much improved. Upon clarification of previous note his visual symptoms did not start prior to the onset of headache. His headache had already started thus this is not an aura. Patient previously experienced nausea and vomiting 05/22, but this has resolved. He is tolerating PO. No difficulty stooling or urinating. No fevers or chills. No CP or SOB. Review of Systems Review of Systems: See HPI. Physical Exam Physical Exam: General: patient resting comfortably, NAD, non-toxic in appearance, A&O Skin: warm, dry, intact, no rashes or lesions HEENT: NC/AT, PERRL, EOMI, anicteric sclera, conjunctiva without injection, external ear normal to inspection and nontender, nares patent, MMM Heart: RRR, no m/r/g Lungs: equal air entry bilaterally, no rales/rhonchi/wheezes Ext: clinically well perfused. Neuro: nonfocal, patient AA&O x 4, speech intact, no facial droop, moving all extremities on command with equal strength Results & Data Results & Data ([facility]) Vital Signs (Past 12 Hours) Vital Signs Temp Pulse Pulse Pulse Resp BP BP 05/26/22 07:17 36.7 C 77 18 113/71 05/26/22 02:05 36.8 C 05/26/22 02:05 05/26/22 02:05 36.8 C 87 05/26/22 01:41 74 15 108/79 05/26/22 00:08 83 19 05/25/22 22:17 95 H 17 05/25/22 20:31 36.4 C L 110 H 20 140/87 BP Pulse Ox O2 Del Method 05/26/22 07:17 98 Room Air 05/26/22 02:05 05/26/22 02:05 Room Air 05/26/22 02:05 149/87 H 96 Room Air 05/26/22 01:41 96 Room Air 05/26/22 00:08 119/84 98 Room Air 05/25/22 22:17 131/96 97 05/25/22 20:31 95 Room Air Laboratory Results 05/26/22 05/26/22 05/26/22 Range/Units 10:30 10:30 06:21 WBC Pending (4.8-10.8) K/ul RBC Pending (4.63-6.08) M/uL Hgb Pending (14.0-18.0) g/dl Hct Pending (40.1-51.0) % MCV Pending (80.0-100.0) fL MCH Pending (25.0-34.0) pg MCHC Pending (32.0-36.0) g/dL RDW Std Deviation (36.4-46.3) fL RDW Coeff of Luly (11.5-14.5) % Plt Count Pending (130-400) K/uL MPV (9.4-12.4) fL Immature Gran % (Auto) % Neut % (Auto) % Lymph % (Auto) % [place] % (Auto) % Eos % (Auto) % Baso % (Auto) % Neut # (Auto) (1.4-6.5) K/uL Lymph # (Auto) (1.2-3.4) K/uL [place] # (Auto) (0.24-0.82) K/uL Eos # (Auto) (0-0.50) K/uL Baso # (Auto) (0-0.2) K/uL Immature Gran # (Auto) (0.00-0.02) K/uL Sodium 130 L (136-145) mmol/L Potassium 3.5 (3.5-5.1) mmol/L Chloride 99 (98-107) mmol/L Carbon Dioxide 25 (21-32) mmol/L Anion Gap 6 (3-11) BUN 9 (6-23) mg/dl Creatinine 0.76 (0.6-1.4) mg/dl Est Cr Clr Drug Dosing 107.3 ml/min Est GFR ( Amer) 113.3 ml/min Est GFR (Non-Af Amer) 97.8 ml/min BUN/Creatinine Ratio (10-20) Glucose (70-99(Fasting)) mg/dl Fasting Glucose 91 (70-99) mg/dl Osmolality (280-300) mOsm/kg Calcium 8.6 (8.5-10.1) mg/dl Phosphorus (2.5-4.9) mg/dl Magnesium (1.7-2.4) mg/dl Total Bilirubin (0.2-1.0) mg/dl AST (13-39) U/L ALT (7-52) U/L Alkaline Phosphatase (34-104) U/L Total Protein (6.0-8.3) gm/dl Albumin (3.4-5.0) gm/dl Globulin (2.5-4.0) gm/dl Albumin/Globulin Ratio (0.9-2) TSH (0.300-4.500) uIu/ml Urine Color Urine Appearance (Clear) Urine pH (4.5-7.5) Ur Specific [place] (1.000-1.030) Urine Protein (Negative) Urine Glucose (UA) (Negative) Urine Ketones (Negative) Urine Blood (Negative) Urine Nitrite (Negative) Urine Bilirubin (Negative) Urine Urobilinogen (Negative) Ur Leukocyte Esterase (Negative) Urine Osmolality (500-800) mOsm/kg Ur Random Sodium mmol/L Hepatitis C Ab (EIA) Pending Hep C Ab Signal/Cutoff Pending SARS-CoV-2, RNA, NAAT (NEGATIVE) 05/26/22 05/26/22 05/26/22 Range/Units 06:21 04:40 00:25 WBC (4.8-10.8) K/ul RBC (4.63-6.08) M/uL Hgb (14.0-18.0) g/dl Hct (40.1-51.0) % MCV (80.0-100.0) fL MCH (25.0-34.0) pg MCHC (32.0-36.0) g/dL RDW Std Deviation (36.4-46.3) fL RDW Coeff of Luly (11.5-14.5) % Plt Count (130-400) K/uL MPV (9.4-12.4) fL Immature Gran % (Auto) % Neut % (Auto) % Lymph % (Auto) % [place] % (Auto) % Eos % (Auto) % Baso % (Auto) % Neut # (Auto) (1.4-6.5) K/uL Lymph # (Auto) (1.2-3.4) K/uL [place] # (Auto) (0.24-0.82) K/uL Eos # (Auto) (0-0.50) K/uL Baso # (Auto) (0-0.2) K/uL Immature Gran # (Auto) (0.00-0.02) K/uL Sodium (136-145) mmol/L Potassium (3.5-5.1) mmol/L Chloride (98-107) mmol/L Carbon Dioxide (21-32) mmol/L Anion Gap (3-11) BUN (6-23) mg/dl Creatinine (0.6-1.4) mg/dl Est Cr Clr Drug Dosing ml/min Est GFR ( Amer) ml/min Est GFR (Non-Af Amer) ml/min BUN/Creatinine Ratio (10-20) Glucose (70-99(Fasting)) mg/dl Fasting Glucose (70-99) mg/dl Osmolality (280-300) mOsm/kg Calcium (8.5-10.1) mg/dl Phosphorus (2.5-4.9) mg/dl Magnesium 2.0 (1.7-2.4) mg/dl Total Bilirubin (0.2-1.0) mg/dl AST (13-39) U/L ALT (7-52) U/L Alkaline Phosphatase (34-104) U/L Total Protein (6.0-8.3) gm/dl Albumin (3.4-5.0) gm/dl Globulin (2.5-4.0) gm/dl Albumin/Globulin Ratio (0.9-2) TSH (0.300-4.500) uIu/ml Urine Color Urine Appearance (Clear) Urine pH (4.5-7.5) Ur Specific [place] (1.000-1.030) Urine Protein (Negative) Urine Glucose (UA) (Negative) Urine Ketones (Negative) Urine Blood (Negative) Urine Nitrite (Negative) Urine Bilirubin (Negative) Urine Urobilinogen (Negative) Ur Leukocyte Esterase (Negative) Urine Osmolality 257 L (500-800) mOsm/kg Ur Random Sodium 38 mmol/L Hepatitis C Ab (EIA) Hep C Ab Signal/Cutoff SARS-CoV-2, RNA, NAAT (NEGATIVE) 05/26/22 05/25/22 05/25/22 Range/Units 00:01 22:11 21:51 WBC (4.8-10.8) K/ul RBC (4.63-6.08) M/uL Hgb (14.0-18.0) g/dl Hct (40.1-51.0) % MCV (80.0-100.0) fL MCH (25.0-34.0) pg MCHC (32.0-36.0) g/dL RDW Std Deviation (36.4-46.3) fL RDW Coeff of Luly (11.5-14.5) % Plt Count (130-400) K/uL MPV (9.4-12.4) fL Immature Gran % (Auto) % Neut % (Auto) % Lymph % (Auto) % [place] % (Auto) % Eos % (Auto) % Baso % (Auto) % Neut # (Auto) (1.4-6.5) K/uL Lymph # (Auto) (1.2-3.4) K/uL [place] # (Auto) (0.24-0.82) K/uL Eos # (Auto) (0-0.50) K/uL Baso # (Auto) (0-0.2) K/uL Immature Gran # (Auto) (0.00-0.02) K/uL Sodium (136-145) mmol/L Potassium (3.5-5.1) mmol/L Chloride (98-107) mmol/L Carbon Dioxide (21-32) mmol/L Anion Gap (3-11) BUN (6-23) mg/dl Creatinine (0.6-1.4) mg/dl Est Cr Clr Drug Dosing ml/min Est GFR ( Amer) ml/min Est GFR (Non-Af Amer) ml/min BUN/Creatinine Ratio (10-20) Glucose (70-99(Fasting)) mg/dl Fasting Glucose (70-99) mg/dl Osmolality 259 L (280-300) mOsm/kg Calcium (8.5-10.1) mg/dl Phosphorus (2.5-4.9) mg/dl Magnesium (1.7-2.4) mg/dl Total Bilirubin (0.2-1.0) mg/dl AST (13-39) U/L ALT (7-52) U/L Alkaline Phosphatase (34-104) U/L Total Protein (6.0-8.3) gm/dl Albumin (3.4-5.0) gm/dl Globulin (2.5-4.0) gm/dl Albumin/Globulin Ratio (0.9-2) TSH (0.300-4.500) uIu/ml Urine Color Yellow Urine Appearance Clear (Clear) Urine pH 6.0 (4.5-7.5) Ur Specific [place] 1.016 (1.000-1.030) Urine Protein Negative (Negative) Urine Glucose (UA) Negative (Negative) Urine Ketones Negative (Negative) Urine Blood Negative (Negative) Urine Nitrite Negative (Negative) Urine Bilirubin Negative (Negative) Urine Urobilinogen Negative (Negative) Ur Leukocyte Esterase Negative (Negative) Urine Osmolality (500-800) mOsm/kg Ur Random Sodium mmol/L Hepatitis C Ab (EIA) Hep C Ab Signal/Cutoff SARS-CoV-2, RNA, NAAT NEGATIVE (NEGATIVE) 05/25/22 05/25/22 05/25/22 Range/Units 21:51 21:51 21:51 WBC (4.8-10.8) K/ul RBC (4.63-6.08) M/uL Hgb (14.0-18.0) g/dl Hct (40.1-51.0) % MCV (80.0-100.0) fL MCH (25.0-34.0) pg MCHC (32.0-36.0) g/dL RDW Std Deviation (36.4-46.3) fL RDW Coeff of Luly (11.5-14.5) % Plt Count (130-400) K/uL MPV (9.4-12.4) fL Immature Gran % (Auto) % Neut % (Auto) % Lymph % (Auto) % [place] % (Auto) % Eos % (Auto) % Baso % (Auto) % Neut # (Auto) (1.4-6.5) K/uL Lymph # (Auto) (1.2-3.4) K/uL [place] # (Auto) (0.24-0.82) K/uL Eos # (Auto) (0-0.50) K/uL Baso # (Auto) (0-0.2) K/uL Immature Gran # (Auto) (0.00-0.02) K/uL Sodium 124 L (136-145) mmol/L Potassium 3.4 L (3.5-5.1) mmol/L Chloride 92 L (98-107) mmol/L Carbon Dioxide 20 L (21-32) mmol/L Anion Gap 12 H (3-11) BUN 13 (6-23) mg/dl Creatinine 1.00 (0.6-1.4) mg/dl Est Cr Clr Drug Dosing 81.6 ml/min Est GFR ( Amer) 93.1 ml/min Est GFR (Non-Af Amer) 80.3 ml/min BUN/Creatinine Ratio 13.0 (10-20) Glucose 113 H (70-99(Fasting)) mg/dl Fasting Glucose (70-99) mg/dl Osmolality (280-300) mOsm/kg Calcium 9.2 (8.5-10.1) mg/dl Phosphorus 3.9 (2.5-4.9) mg/dl Magnesium 1.4 L (1.7-2.4) mg/dl Total Bilirubin 1.0 (0.2-1.0) mg/dl AST 42 H (13-39) U/L ALT 42 (7-52) U/L Alkaline Phosphatase 99 (34-104) U/L Total Protein 7.3 (6.0-8.3) gm/dl Albumin 4.8 (3.4-5.0) gm/dl Globulin 2.5 (2.5-4.0) gm/dl Albumin/Globulin Ratio 1.9 (0.9-2) TSH 2.826 (0.300-4.500) uIu/ml Urine Color Urine Appearance (Clear) Urine pH (4.5-7.5) Ur Specific [place] (1.000-1.030) Urine Protein (Negative) Urine Glucose (UA) (Negative) Urine Ketones (Negative) Urine Blood (Negative) Urine Nitrite (Negative) Urine Bilirubin (Negative) Urine Urobilinogen (Negative) Ur Leukocyte Esterase (Negative) Urine Osmolality (500-800) mOsm/kg Ur Random Sodium mmol/L Hepatitis C Ab (EIA) Hep C Ab Signal/Cutoff SARS-CoV-2, RNA, NAAT (NEGATIVE) 05/25/22 Range/Units 21:51 WBC 8.24 (4.8-10.8) K/ul RBC 5.08 (4.63-6.08) M/uL Hgb 15.6 (14.0-18.0) g/dl Hct 41.4 (40.1-51.0) % MCV 81.5 (80.0-100.0) fL MCH 30.7 (25.0-34.0) pg MCHC 37.7 H (32.0-36.0) g/dL RDW Std Deviation 36.5 (36.4-46.3) fL RDW Coeff of Luly 12.4 (11.5-14.5) % Plt Count 278 (130-400) K/uL MPV 9.0 L (9.4-12.4) fL Immature Gran % (Auto) 0.2 % Neut % (Auto) 70.2 % Lymph % (Auto) 12.1 % [place] % (Auto) 14.9 % Eos % (Auto) 2.1 % Baso % (Auto) 0.5 % Neut # (Auto) 5.78 (1.4-6.5) K/uL Lymph # (Auto) 1.00 L (1.2-3.4) K/uL [place] # (Auto) 1.23 H (0.24-0.82) K/uL Eos # (Auto) 0.17 (0-0.50) K/uL Baso # (Auto) 0.04 (0-0.2) K/uL Immature Gran # (Auto) 0.02 (0.00-0.02) K/uL Sodium (136-145) mmol/L Potassium (3.5-5.1) mmol/L Chloride (98-107) mmol/L Carbon Dioxide (21-32) mmol/L Anion Gap (3-11) BUN (6-23) mg/dl Creatinine (0.6-1.4) mg/dl Est Cr Clr Drug Dosing ml/min Est GFR ( Amer) ml/min Est GFR (Non-Af Amer) ml/min BUN/Creatinine Ratio (10-20) Glucose (70-99(Fasting)) mg/dl Fasting Glucose (70-99) mg/dl Osmolality (280-300) mOsm/kg Calcium (8.5-10.1) mg/dl Phosphorus (2.5-4.9) mg/dl Magnesium (1.7-2.4) mg/dl Total Bilirubin (0.2-1.0) mg/dl AST (13-39) U/L ALT (7-52) U/L Alkaline Phosphatase (34-104) U/L Total Protein (6.0-8.3) gm/dl Albumin (3.4-5.0) gm/dl Globulin (2.5-4.0) gm/dl Albumin/Globulin Ratio (0.9-2) TSH (0.300-4.500) uIu/ml Urine Color Urine Appearance (Clear) Urine pH (4.5-7.5) Ur Specific Mccrory (1.000-1.030) Urine Protein (Negative) Urine Glucose (UA) (Negative) Urine Ketones (Negative) Urine Blood (Negative) Urine Nitrite (Negative) Urine Bilirubin (Negative) Urine Urobilinogen (Negative) Ur Leukocyte Esterase (Negative) Urine Osmolality (500-800) mOsm/kg Ur Random Sodium mmol/L Hepatitis C Ab (EIA) Hep C Ab Signal/Cutoff SARS-CoV-2, RNA, NAAT (NEGATIVE) Diagnostic Findings Head CT 05/26/22 02:[address] DOSE: 691.05 mGy.cm HISTORY: headache, hyponatremia TECHNIQUE: Multiaxial CT images of the head were performed without the use of intravenous contrast. Automated exposure control was utilized for this study. A dose lowering technique was utilized adhering to the principles of ALARA. Comparison: Head CT 01/28/2021. Findings: The paranasal sinuses and mastoid air cells are clear. The calvarium and skull base are intact. The ventricles and sulci are within normal limits. There is no mass, hematoma, midline shift, or acute infarct. Impression: No acute intracranial abnormality.
[2022-05-26] MEDS ORDERED: LOSARTAN POTASSIUM 50 MG TAB PO SCH (09:00)
[2022-05-26] MEDS ORDERED: FAMOTIDINE 40 MG TABLET PO SCH (09:00)
[2022-05-26] MEDS ORDERED: ROSUVASTATIN CALCIUM 10 MG TAB PO SCH (09:00)
[2022-05-26 11:12] LABS: Calcium 8.6 mg/dl (8.5-10.1); Creatinine Clr Calc Pharmacy 107.3 ml/min; Est GFR (African American) 113.3 ml/min; Est GFR (Non-African American) 97.8 ml/min; Potassium 3.5 mmol/L (3.5-5.1)
--- NOTE | 2022-05-26 12:36 | Discharge Summary ---
Date of Service May 26, 2022 Admission HPI Per Admitting Provider Justin Lang Is a 62-year-old male presenting with complaint of persistent headache ongoing for the last 5 days. He reports prior history of migraine or possible cluster headaches.Most recent episode began 5 days ago. He noted some mild visual disturbance prior to the headache which he describes as "missing pieces" and what he was seeing. Patient has been on Bactrim for cellulitis of the left foot. He has had some nausea as well as feeling "woozy" but no additional complaints. Specifically denies fevers, chills, chest pain, cough, shortness of breath, nausea, vomiting, diarrhea, constipation In the ER he was found to be hyponatremic with sodium = 124, K = 3.4, magnesium = 1.4 Admission Exam Per Admitting Provider General: patient resting comfortably, NAD, non-toxic in appearance, AA&O x 4 Skin: warm, dry, intact, no rashes or lesions HEENT: NC/AT, PERRL, EOMI, anicteric sclera, conjunctiva without injection, external ear normal to inspection and nontender, nares patent, moist mucus membranes, dentition intact, no oropharyngeal lesions, neck supple, trachea midline, no LAD, no thyromegaly, no JVD Heart: +S1/S2, regular, no m/r/g Lungs: equal air entry bilaterally, no rales/rhonchi/wheezes Abd: +BS, soft, NT/ND, no masses/organomegaly/ascites Ext: warm, 2+ pulses in UE/LE bilaterally, no clubbing/cyanosis or edema Neuro: nonfocal, patient AA&O x 4, speech intact, no facial droop, moving all extremities on command with equal strength 5/5 Principal Diagnosis hyponatremia, headache Discharge Exam General: well appearing male resting comfortably in NAD Skin: warm, dry, intact, no rashes or lesions HEENT: NC/AT, PERRL, EOMI, anicteric sclera, conjunctiva without injection, external ear normal to inspection and nontender, nares patent, MMM Heart: RRR, no m/r/g Lungs: equal air entry bilaterally, no rales/rhonchi/wheezes Ext: clinically well perfused. Neuro: nonfocal, patient A&O, speech intact, no facial droop, moving all extremities on command without focal deficits Discharge Data Allergies Allergy/AdvReac Type Severity Reaction Status Date / Time latex Allergy Intermediate RASH Verified 05/13/22 14:41 wool Allergy Mild Unknown Verified 05/26/22 02:12 Consultations 05/26/22 00:17 ED Decision to Admit Stat Ordered Studies Head CT 05/26/22 02:[address] DOSE: 691.05 mGy.cm HISTORY: headache, hyponatremia TECHNIQUE: Multiaxial CT images of the head were performed without the use of intravenous contrast. Automated exposure control was utilized for this study. A dose lowering technique was utilized adhering to the principles of ALARA. Comparison: Head CT 01/28/2021. Findings: The paranasal sinuses and mastoid air cells are clear. The calvarium and skull base are intact. The ventricles and sulci are within normal limits. There is no mass, hematoma, midline shift, or acute infarct. Impression: No acute intracranial abnormality. 05/26/22 05/26/22 05/26/22 Range/Units 10:30 10:30 06:21 WBC Pending (4.8-10.8) K/ul RBC Pending (4.63-6.08) M/uL Hgb Pending (14.0-18.0) g/dl Hct Pending (40.1-51.0) % MCV Pending (80.0-100.0) fL MCH Pending (25.0-34.0) pg MCHC Pending (32.0-36.0) g/dL RDW Std Deviation (36.4-46.3) fL RDW Coeff of Luly (11.5-14.5) % Plt Count Pending (130-400) K/uL MPV (9.4-12.4) fL Immature Gran % (Auto) % Neut % (Auto) % Lymph % (Auto) % [place] % (Auto) % Eos % (Auto) % Baso % (Auto) % Neut # (Auto) (1.4-6.5) K/uL Lymph # (Auto) (1.2-3.4) K/uL [place] # (Auto) (0.24-0.82) K/uL Eos # (Auto) (0-0.50) K/uL Baso # (Auto) (0-0.2) K/uL Immature Gran # (Auto) (0.00-0.02) K/uL Sodium 130 L (136-145) mmol/L Potassium 3.5 (3.5-5.1) mmol/L Chloride 99 (98-107) mmol/L Carbon Dioxide 25 (21-32) mmol/L Anion Gap 6 (3-11) BUN 9 (6-23) mg/dl Creatinine 0.76 (0.6-1.4) mg/dl Est Cr Clr Drug Dosing 107.3 ml/min Est GFR ( Amer) 113.3 ml/min Est GFR (Non-Af Amer) 97.8 ml/min BUN/Creatinine Ratio (10-20) Glucose (70-99(Fasting)) mg/dl Fasting Glucose 91 (70-99) mg/dl Osmolality (280-300) mOsm/kg Calcium 8.6 (8.5-10.1) mg/dl Phosphorus (2.5-4.9) mg/dl Magnesium (1.7-2.4) mg/dl Total Bilirubin (0.2-1.0) mg/dl AST (13-39) U/L ALT (7-52) U/L Alkaline Phosphatase (34-104) U/L Total Protein (6.0-8.3) gm/dl Albumin (3.4-5.0) gm/dl Globulin (2.5-4.0) gm/dl Albumin/Globulin Ratio (0.9-2) TSH (0.300-4.500) uIu/ml Urine Color Urine Appearance (Clear) Urine pH (4.5-7.5) Ur Specific [place] (1.000-1.030) Urine Protein (Negative) Urine Glucose (UA) (Negative) Urine Ketones (Negative) Urine Blood (Negative) Urine Nitrite (Negative) Urine Bilirubin (Negative) Urine Urobilinogen (Negative) Ur Leukocyte Esterase (Negative) Urine Osmolality (500-800) mOsm/kg Ur Random Sodium mmol/L Hepatitis C Ab (EIA) Pending Hep C Ab Signal/Cutoff Pending SARS-CoV-2, RNA, NAAT (NEGATIVE) 05/26/22 05/26/22 05/26/22 Range/Units 06:21 04:40 00:25 WBC (4.8-10.8) K/ul RBC (4.63-6.08) M/uL Hgb (14.0-18.0) g/dl Hct (40.1-51.0) % MCV (80.0-100.0) fL MCH (25.0-34.0) pg MCHC (32.0-36.0) g/dL RDW Std Deviation (36.4-46.3) fL RDW Coeff of Luly (11.5-14.5) % Plt Count (130-400) K/uL MPV (9.4-12.4) fL Immature Gran % (Auto) % Neut % (Auto) % Lymph % (Auto) % [place] % (Auto) % Eos % (Auto) % Baso % (Auto) % Neut # (Auto) (1.4-6.5) K/uL Lymph # (Auto) (1.2-3.4) K/uL [place] # (Auto) (0.24-0.82) K/uL Eos # (Auto) (0-0.50) K/uL Baso # (Auto) (0-0.2) K/uL Immature Gran # (Auto) (0.00-0.02) K/uL Sodium (136-145) mmol/L Potassium (3.5-5.1) mmol/L Chloride (98-107) mmol/L Carbon Dioxide (21-32) mmol/L Anion Gap (3-11) BUN (6-23) mg/dl Creatinine (0.6-1.4) mg/dl Est Cr Clr Drug Dosing ml/min Est GFR ( Amer) ml/min Est GFR (Non-Af Amer) ml/min BUN/Creatinine Ratio (10-20) Glucose (70-99(Fasting)) mg/dl Fasting Glucose (70-99) mg/dl Osmolality (280-300) mOsm/kg Calcium (8.5-10.1) mg/dl Phosphorus (2.5-4.9) mg/dl Magnesium 2.0 (1.7-2.4) mg/dl Total Bilirubin (0.2-1.0) mg/dl AST (13-39) U/L ALT (7-52) U/L Alkaline Phosphatase (34-104) U/L Total Protein (6.0-8.3) gm/dl Albumin (3.4-5.0) gm/dl Globulin (2.5-4.0) gm/dl Albumin/Globulin Ratio (0.9-2) TSH (0.300-4.500) uIu/ml Urine Color Urine Appearance (Clear) Urine pH (4.5-7.5) Ur Specific [place] (1.000-1.030) Urine Protein (Negative) Urine Glucose (UA) (Negative) Urine Ketones (Negative) Urine Blood (Negative) Urine Nitrite (Negative) Urine Bilirubin (Negative) Urine Urobilinogen (Negative) Ur Leukocyte Esterase (Negative) Urine Osmolality 257 L (500-800) mOsm/kg Ur Random Sodium 38 mmol/L Hepatitis C Ab (EIA) Hep C Ab Signal/Cutoff SARS-CoV-2, RNA, NAAT (NEGATIVE) 05/26/22 05/25/22 05/25/22 Range/Units 00:01 22:11 21:51 WBC (4.8-10.8) K/ul RBC (4.63-6.08) M/uL Hgb (14.0-18.0) g/dl Hct (40.1-51.0) % MCV (80.0-100.0) fL MCH (25.0-34.0) pg MCHC (32.0-36.0) g/dL RDW Std Deviation (36.4-46.3) fL RDW Coeff of Luly (11.5-14.5) % Plt Count (130-400) K/uL MPV (9.4-12.4) fL Immature Gran % (Auto) % Neut % (Auto) % Lymph % (Auto) % [place] % (Auto) % Eos % (Auto) % Baso % (Auto) % Neut # (Auto) (1.4-6.5) K/uL Lymph # (Auto) (1.2-3.4) K/uL [place] # (Auto) (0.24-0.82) K/uL Eos # (Auto) (0-0.50) K/uL Baso # (Auto) (0-0.2) K/uL Immature Gran # (Auto) (0.00-0.02) K/uL Sodium (136-145) mmol/L Potassium (3.5-5.1) mmol/L Chloride (98-107) mmol/L Carbon Dioxide (21-32) mmol/L Anion Gap (3-11) BUN (6-23) mg/dl Creatinine (0.6-1.4) mg/dl Est Cr Clr Drug Dosing ml/min Est GFR ( Amer) ml/min Est GFR (Non-Af Amer) ml/min BUN/Creatinine Ratio (10-20) Glucose (70-99(Fasting)) mg/dl Fasting Glucose (70-99) mg/dl Osmolality 259 L (280-300) mOsm/kg Calcium (8.5-10.1) mg/dl Phosphorus (2.5-4.9) mg/dl Magnesium (1.7-2.4) mg/dl Total Bilirubin (0.2-1.0) mg/dl AST (13-39) U/L ALT (7-52) U/L Alkaline Phosphatase (34-104) U/L Total Protein (6.0-8.3) gm/dl Albumin (3.4-5.0) gm/dl Globulin (2.5-4.0) gm/dl Albumin/Globulin Ratio (0.9-2) TSH (0.300-4.500) uIu/ml Urine Color Yellow Urine Appearance Clear (Clear) Urine pH 6.0 (4.5-7.5) Ur Specific [place] 1.016 (1.000-1.030) Urine Protein Negative (Negative) Urine Glucose (UA) Negative (Negative) Urine Ketones Negative (Negative) Urine Blood Negative (Negative) Urine Nitrite Negative (Negative) Urine Bilirubin Negative (Negative) Urine Urobilinogen Negative (Negative) Ur Leukocyte Esterase Negative (Negative) Urine Osmolality (500-800) mOsm/kg Ur Random Sodium mmol/L Hepatitis C Ab (EIA) Hep C Ab Signal/Cutoff SARS-CoV-2, RNA, NAAT NEGATIVE (NEGATIVE) 05/25/22 05/25/22 05/25/22 Range/Units 21:51 21:51 21:51 WBC (4.8-10.8) K/ul RBC (4.63-6.08) M/uL Hgb (14.0-18.0) g/dl Hct (40.1-51.0) % MCV (80.0-100.0) fL MCH (25.0-34.0) pg MCHC (32.0-36.0) g/dL RDW Std Deviation (36.4-46.3) fL RDW Coeff of Luly (11.5-14.5) % Plt Count (130-400) K/uL MPV (9.4-12.4) fL Immature Gran % (Auto) % Neut % (Auto) % Lymph % (Auto) % [place] % (Auto) % Eos % (Auto) % Baso % (Auto) % Neut # (Auto) (1.4-6.5) K/uL Lymph # (Auto) (1.2-3.4) K/uL [place] # (Auto) (0.24-0.82) K/uL Eos # (Auto) (0-0.50) K/uL Baso # (Auto) (0-0.2) K/uL Immature Gran # (Auto) (0.00-0.02) K/uL Sodium 124 L (136-145) mmol/L Potassium 3.4 L (3.5-5.1) mmol/L Chloride 92 L (98-107) mmol/L Carbon Dioxide 20 L (21-32) mmol/L Anion Gap 12 H (3-11) BUN 13 (6-23) mg/dl Creatinine 1.00 (0.6-1.4) mg/dl Est Cr Clr Drug Dosing 81.6 ml/min Est GFR ( Amer) 93.1 ml/min Est GFR (Non-Af Amer) 80.3 ml/min BUN/Creatinine Ratio 13.0 (10-20) Glucose 113 H (70-99(Fasting)) mg/dl Fasting Glucose (70-99) mg/dl Osmolality (280-300) mOsm/kg Calcium 9.2 (8.5-10.1) mg/dl Phosphorus 3.9 (2.5-4.9) mg/dl Magnesium 1.4 L (1.7-2.4) mg/dl Total Bilirubin 1.0 (0.2-1.0) mg/dl AST 42 H (13-39) U/L ALT 42 (7-52) U/L Alkaline Phosphatase 99 (34-104) U/L Total Protein 7.3 (6.0-8.3) gm/dl Albumin 4.8 (3.4-5.0) gm/dl Globulin 2.5 (2.5-4.0) gm/dl Albumin/Globulin Ratio 1.9 (0.9-2) TSH 2.826 (0.300-4.500) uIu/ml Urine Color Urine Appearance (Clear) Urine pH (4.5-7.5) Ur Specific [place] (1.000-1.030) Urine Protein (Negative) Urine Glucose (UA) (Negative) Urine Ketones (Negative) Urine Blood (Negative) Urine Nitrite (Negative) Urine Bilirubin (Negative) Urine Urobilinogen (Negative) Ur Leukocyte Esterase (Negative) Urine Osmolality (500-800) mOsm/kg Ur Random Sodium mmol/L Hepatitis C Ab (EIA) Hep C Ab Signal/Cutoff SARS-CoV-2, RNA, NAAT (NEGATIVE) 05/25/22 Range/Units 21:51 WBC 8.24 (4.8-10.8) K/ul RBC 5.08 (4.63-6.08) M/uL Hgb 15.6 (14.0-18.0) g/dl Hct 41.4 (40.1-51.0) % MCV 81.5 (80.0-100.0) fL MCH 30.7 (25.0-34.0) pg MCHC 37.7 H (32.0-36.0) g/dL RDW Std Deviation 36.5 (36.4-46.3) fL RDW Coeff of Luly 12.4 (11.5-14.5) % Plt Count 278 (130-400) K/uL MPV 9.0 L (9.4-12.4) fL Immature Gran % (Auto) 0.2 % Neut % (Auto) 70.2 % Lymph % (Auto) 12.1 % [place] % (Auto) 14.9 % Eos % (Auto) 2.1 % Baso % (Auto) 0.5 % Neut # (Auto) 5.78 (1.4-6.5) K/uL Lymph # (Auto) 1.00 L (1.2-3.4) K/uL [place] # (Auto) 1.23 H (0.24-0.82) K/uL Eos # (Auto) 0.17 (0-0.50) K/uL Baso # (Auto) 0.04 (0-0.2) K/uL Immature Gran # (Auto) 0.02 (0.00-0.02) K/uL Sodium (136-145) mmol/L Potassium (3.5-5.1) mmol/L Chloride (98-107) mmol/L Carbon Dioxide (21-32) mmol/L Anion Gap (3-11) BUN (6-23) mg/dl Creatinine (0.6-1.4) mg/dl Est Cr Clr Drug Dosing ml/min Est GFR ( Amer) ml/min Est GFR (Non-Af Amer) ml/min BUN/Creatinine Ratio (10-20) Glucose (70-99(Fasting)) mg/dl Fasting Glucose (70-99) mg/dl Osmolality (280-300) mOsm/kg Calcium (8.5-10.1) mg/dl Phosphorus (2.5-4.9) mg/dl Magnesium (1.7-2.4) mg/dl Total Bilirubin (0.2-1.0) mg/dl AST (13-39) U/L ALT (7-52) U/L Alkaline Phosphatase (34-104) U/L Total Protein (6.0-8.3) gm/dl Albumin (3.4-5.0) gm/dl Globulin (2.5-4.0) gm/dl Albumin/Globulin Ratio (0.9-2) TSH (0.300-4.500) uIu/ml Urine Color Urine Appearance (Clear) Urine pH (4.5-7.5) Ur Specific [place] (1.000-1.030) Urine Protein (Negative) Urine Glucose (UA) (Negative) Urine Ketones (Negative) Urine Blood (Negative) Urine Nitrite (Negative) Urine Bilirubin (Negative) Urine Urobilinogen (Negative) Ur Leukocyte Esterase (Negative) Urine Osmolality (500-800) mOsm/kg Ur Random Sodium mmol/L Hepatitis C Ab (EIA) Hep C Ab Signal/Cutoff SARS-CoV-2, RNA, NAAT (NEGATIVE) Hospital Course (1) Head ache: 62 y/o male with a PMHx of HTN, GERD, and dyslipidemia here for evaluation of a headache of 5 days duration. He has a history of headaches - unclear if migraines vs cluster headaches. The severity of this headache with the associated nausea/vomiting is what prompted him to come to the ED. Upon clarification of previous note his visual symptoms did not start prior to the onset of headache. His headache had already started thus this is not an aura. Reports that his pain is improved at this point. Not requesting anything for headache at this time. Clear for discharge home. Can use Tylenol or Excedrin as needed for headache. Follow up with PCP for possible prescription management of headaches (Topamax vs triptan) (2) Hyponatremia: Patient was found to be hyponatremic on routine labs with a sodium on 124. Like this is multifactorial in nature with recent Bactrim use, HCTZ use, and decreased PO intake in the setting of nausea 2/2 headache. HCTZ and Bactrim were held inpatient. Patient was given IVF for resuscitation. He is now tolerating PO intake and his repeat sodium was improved to 130. Recommended f/u with PCP and repeat BMP 05/29. Continue to hold HCTZ. Can consider restarting outpatient after hyponatremia resolves. (3) HTN (hypertension), benign: Patient has a history of HTN and is on losartan 100-HCTZ 25 at home. Patient was given losartan 100 mg QD while inpatient. Continue with this on discharge and hold HCTZ. (4) GERD (gastroesophageal reflux disease): Patient has a hx of GERD on Prilosec at home. Managed with Pepcid 40 mg QD while in patient. Resume home med on discharge. (5) Dyslipidemia: Patient has a history of dyslipidemia. Home rosuvastatin was continued inpatient. Resume home med on discharge. (6) Cellulitis of left toe: Patient has been undergoing treatment for cellulitis of the left middle toe. Was on 7 days of Keflex which provided improvement, but not resolution of symptoms. Patient was then given 7 days of Bactrim - took 5 doses. Headache started about 6 hours after first dose of Bactrim, which may have been a contributing factor. If toe swelling and erythema fails to resolve would consider another course of Keflex as this did initially improve symptoms. Total Time Total Time Spent Total Time Spent (In Minutes): I spent a total of 35 minutes seeing the patient, reviewing outpatient notes, previous lab results, medication history, and documenting. Discharge Plan Discharge Items Patient Disposition: Home - Self-Care Reason For Visit: HYPONATREMIA Discharge Diagnosis: hyponatremia, headache Activity: Per Instructions section Non-emergency contact: Primary Care Provider Call non-emergency contact if: your symptoms worsen and your pain is not controlled Follow-up/Referrals: Ami Hernandez MD [Primary Care Provider] - 06/04/22 11:00 am (APPT WITH ETELVINA HOBSON PA-C) Diet: Regular Ambulatory Orders: Basic Metabolic Panel (Routine) Timeframe: 3 Days Location: Determined by Patient Ordered By: Aileen Jones Attending Provider Instructions: You were seen in the hospital for a headache with nausea and vomiting. This may have been a migraine. Your pain was well controlled with Tylenol and your nausea has resolved. Continue this medication at home as needed. This may have been related to the Bactrim. Discuss with your PCP further treatment options. You were also found to have low sodium levels. This was likely multifactorial with your decreased eating/drinking, HCTZ use, and Bactrim use. Hold HCTZ for now. Encouraged eating/drinking. Continue with losartan dose. Get repeat lab work Wednesday to check your sodium levels. Follow up with your PCP. Pending Studies at Discharge: Yes Studies:: Hep C Stand-Alone Forms: My [facility] [place], Smoking Cessation Medications and DC Order Prescriptions: New losartan 100 mg tablet 100 mg PO DAILY Qty: 30 0RF Continued Centrum Silver Ultra Men's 300-600-300 mcg tablet 1 tab PO DAILY ascorbic acid (vitamin C) 1,000 mg tablet 1 gm PO DAILY garlic 1,000 mg capsule 1,000 mg PO BID fluocinonide 0.05 % cream 1 appln TOP BID PRN (Reason: rash) rosuvastatin 10 mg tablet 10 mg PO DAILY Qty: 90 3RF zinc 50 mg tablet 50 mg PO DAILY cholecalciferol (vitamin D3) 25 mcg (1,000 unit) capsule 25 mcg PO DAILY flaxseed oil [[place]-3 Flaxseed Oil] 1,000 mg capsule 1,400 mg PO BIDM Rx Instructions: administer with a meal szyplbg-jryo-ceqac-oreg-capryl 100 mg-150 mg- 50 mg-150 mg capsule PO Excedrin Extra Strength 250-250-65 mg tablet 1 tab PO Q6H PRN Prilosec OTC 20 mg tablet,delayed release (DR/EC) 10 mg PO DAILY Discontinued sulfamethoxazole-trimethoprim 800-160 mg tablet 1 tab PO BID 7 Days Qty: 14 0RF loratadine [Claritin] 10 mg tablet 10 mg PO DAILY PRN losartan-hydrochlorothiazide 100-25 mg tablet 1 tab PO DAILY Qty: 90 3RF Discharge Orders: Discharge Order (Routine); Ordered 05/26/22 Ordered By: Aileen Child/Other Patient Handouts: Hyponatremia Dc Admission Data Admit Date/Time: 05/26/22 01:07 Attending Provider: Donell Allen Admit Provider: April Rico Primary Care Provider: Ami Hernandez Other Providers: April Rico Supervising Physician Co-Signing Physician Notes I also saw the patient and confirmed cooper portions of the history and physical examination. I agree with impression and plan as noted in the resident documentation. 62-year-old male presents to the hospital yesterday after a 5-day history of headache, decreased appetite, decreased p.o. intake. His headache was successfully treated in the emergency department although he was found to be hyponatremic with a serum sodium of 124, thus kept for observation. This morning, his serum sodium has improved to 130. He also reports that headache is improved, very mild at present. He has a longstanding history of migrainous type headaches although he is never formally discussed this with his current PCP. He usually manages with [id number] analgesics successfully. His most recent headache was somewhat similar to his usual migraine headaches, but little more intense and associated with the nausea and vomiting which was unusual for him. In review of his outpatient notes, he was recently treated for a toe infection. He was initially given Keflex for 7 days after which he noted improvement; however, there is still some erythema at his recheck so he was then given a prescription for Bactrim. About a day or so after starting the Bactrim, he developed the headache and nausea/emesis. Exam 113/71, 77, 18, 36.7, 90% room air Pleasant alert. Oriented. No acute distress. HEENT grossly unremarkable. Pupils equal round reactive light. Heart is regular Lungs are clear Abdomen soft and nontender His left third toe with very (?) faint erythema at the tip, no edema, no sign of infection. Data Sodium 130, potassium 3.5, BUN 9, creatinine 0.[address] of the head showed no abnormalities Impression and plan Hyponatremia, improving Suspect this is multifactorial, hydrochlorothiazide, Bactrim, and decreased p.o. intake all can cause hyponatremia Improved this morning and suspect will continue to improve with his usual appetite/diet We will hold hydrochlorothiazide for now Will not resume Bactrim; there is no sign of infection at present Repeat BMP in 3 to 4 days PCP follow-up within 1 week Headaches, migraines, acute on chronic Improved, may or may not be related to the Bactrim Suggested discussing abortive and preventive therapies with PCP Hypertension, controlled Hold hydrochlorothiazide as noted above, continue losartan 100 mg daily If not at BP goal, hydrochlorothiazide could be re-added once normal serum sodium is confirmed. Additional per resident documentation Resident Activity Tracking Resident Involvement: Resident Care Provided Care Provided: Adult [facility]
[2022-05-26 16:07] LABS: Hematocrit (blood only) 35.2 % (40.1-51.0); Hemoglobin 13.2 g/dl (14.0-18.0); Mean Corpuscular Hemoglobin 30.3 pg (25.0-34.0); Mean Corpuscular Hgb Conc 37.5 g/dL (32.0-36.0); Mean Corpuscular Volume 80.7 fL (80.0-100.0); Mean Platelet Volume 8.8 fL (9.4-12.4); Platelet Count 208 K/uL (130-400); RDW Coefficient of Variation 12.6 % (11.5-14.5); RDW Standard Deviation 36.6 fL (36.4-46.3); Red Blood Count 4.36 M/uL (4.63-6.08); White Blood Count 3.24 K/ul (4.8-10.8)
== END 2022-05-26 13:39 | disposition home or self-care (01) | DRG 103 ==
LOC: ED 20:20 → SUATTDRO 05-26 01:07 → 3N 05-26 01:07
DX: Y92.009 Unspecified place in unspecified non-institutional (private) residence as the place of occurrence of the external cause; R73.03 Prediabetes; Z91.041 Radiographic dye allergy status; I10 Essential (primary) hypertension; Z79.82 Long term (current) use of aspirin; R51.9 Headache, unspecified; E78.1 Pure hyperglyceridemia; E87.1 Hypo-osmolality and hyponatremia; Z91.040 Latex allergy status; E78.5 Hyperlipidemia, unspecified; L03.032 Cellulitis of left toe; T37.0X5A Adverse effect of sulfonamides, initial encounter; G43.909 Migraine, unspecified, not intractable, without status migrainosus; K21.9 Gastro-esophageal reflux disease without esophagitis